=== PATIENT | female | born 1955 ===

== ENCOUNTER 2017-06-21 16:41 | Emergency (ER) | payer BC, OTHER ==
[2017-06-21 16:50] VITALS: BP 126/82
[2017-06-21] MEDS ORDERED: Lidocaine 1% INJ* 10 MG/ML 30 ML SDV INJ ONE (17:22)
[2017-06-21] MEDS ORDERED: Lidocaine 1%* 5 ML VIAL ONE (17:24)
--- NOTE | 2017-06-21 17:34 | UC ---
Laceration HPI - HPI Summary HPI Summary: 62 year old female with finger laceration . left 2nd finger laceration. cut finger on scissors. she is up to date with tetanus. happened about 30 min ago . new scissors. FROM of fingers. [ End ] - History Of Current Complaint Chief Complaint: UCLaceration Stated Complaint: CUT LEFT POINTER FINGER Time Seen by Provider: 06/21/17 17:21 Pain Intensity: 3 - Allergies/Home Medications Allergies/Adverse Reactions: Allergies Allergy/AdvReac Type Severity Reaction Status Date / Time ciprofloxacin Allergy Unknown Verified 06/21/17 16:48 Reaction Details propoxyphene [From Darvon] Allergy See Comment Verified 06/21/17 16:48 Home Medications: Home Medications Amoxicillin/Clavulanate TAB* [Augmentin TAB 875*] 875 mg PO BID 06/21/17 [ History Confirmed 06/21/17] metroNIDAZOLE [Flagyl 500 MG TAB] 500 mg PO BID 06/21/17 [History Confirmed 08/03] PMH/Surg Hx/FS Hx/Imm Hx Previously Healthy: Yes - Surgical History Surgical History: Yes Surgery Procedure, Year, and Place: Exp Lap, look for ectopic preg - Family History Known Family History: Positive: None - Social History Occupation: Employed Full-time Lives: With Family Alcohol Use: None Substance Use Type: None Smoking Status (MU): Never Smoked Tobacco Review of Systems Skin: Other - laceration Is Patient Immunocompromised?: No All Other Systems Reviewed And Are Negative: Yes Physical Exam Triage Information Reviewed: Yes Appearance: Well-Appearing, No Pain Distress, Well-Nourished Vital Signs: Initial Vital Signs Temp 99.0 F 06/21/17 16:42 Pulse 61 06/21/17 16:42 Resp 14 06/21/17 16:42 BP 126/82 06/21/17 16:42 Pulse Ox 100 06/21/17 16:42 Vital Signs Reviewed: Yes Eyes: Positive: Conjunctiva Clear ENT: Positive: Hearing grossly normal Neck: Positive: 1 Respiratory: Positive: No respiratory distress Musculoskeletal Exam: Normal Musculoskeletal: Positive: Strength Intact, ROM Intact Neurological Exam: Normal Psychological Exam: Normal Skin Exam: Normal Skin: Positive: Other - laceration lateral aspect of the index finger left well approximated 5mm not bleeding. no tendon noted. FROM in that finger. strength 5/ 5 with extension flexion . cap refill < 3 sec. peripheal pulses intact and brisk. no other joint involved Laceration Repair - Laceration Repair 1 Description: Linear : No Repair Necessary Laceration Size After Repair: Length (cm) - 0.5 Modified For Repair: No Cleansing Completed Via Routine Prep: Yes Closure Material: Skin Adhesive, SteriStrips Laceration Course/Dx - Differential Dx - Laceration/Wound Differental Diagnoses: Laceration Provider Diagnoses: Laceration index finger left Discharge - Sign-Out/Discharge Documenting (check all that apply): Discharge - Discharge Plan Condition: Good Disposition: HOME Patient Education Materials: Finger Laceration (ED) Referrals: Elaine CALLEJAS,Prachi [Primary Care Provider] - 4 Days - Billing Disposition and Condition Condition: GOOD Disposition: HOME
== END 2017-06-21 18:02 | disposition home or self-care (01) ==
LOC: UCCORT 16:41
DX: S61.211A Laceration without foreign body of left index finger without damage to nail, initial encounter (principal); W27.2XXA Contact with scissors, initial encounter; Y92.9 Unspecified place or not applicable
CPT/HCPCS: 12001; 99211; G0463